=== PATIENT | male | born 1980 | race Caucasian/White ===

== ENCOUNTER 2024-02-15 08:12 | Outpatient (CLI) | payer OTHER | END 2024-02-15 08:13 | disposition home or self-care (01) | LOC: CSHWCC 08:12 | PROVIDERS: ATTEND Nurse Practitioner Family | DX: E11.621 Type 2 diabetes mellitus with foot ulcer (principal); L97.512 Non-pressure chronic ulcer of other part of right foot with fat layer exposed | CPT/HCPCS: 11042; 99213; G0463 ==

== ENCOUNTER 2024-02-18 10:44 | Outpatient (CLI) | payer OTHER | END 2024-02-18 10:45 | disposition home or self-care (01) | LOC: CSHWCC 10:44 | PROVIDERS: ATTEND Nurse Practitioner Family | DX: E11.621 Type 2 diabetes mellitus with foot ulcer (principal); L97.512 Non-pressure chronic ulcer of other part of right foot with fat layer exposed | CPT/HCPCS: 11042 ==

== ENCOUNTER 2024-03-03 14:32 | Outpatient (CLI) | payer OTHER | END 2024-03-03 14:33 | disposition home or self-care (01) | LOC: CSHWCC 14:32 | PROVIDERS: ATTEND Nurse Practitioner Family | DX: E11.621 Type 2 diabetes mellitus with foot ulcer (principal); L97.512 Non-pressure chronic ulcer of other part of right foot with fat layer exposed | CPT/HCPCS: 11042 ==

== ENCOUNTER 2024-03-10 08:39 | Outpatient (CLI) | payer OTHER | END 2024-03-10 08:40 | disposition home or self-care (01) | LOC: CSHWCC 08:39 | PROVIDERS: ATTEND Nurse Practitioner Family | DX: E11.621 Type 2 diabetes mellitus with foot ulcer (principal); L97.512 Non-pressure chronic ulcer of other part of right foot with fat layer exposed | CPT/HCPCS: 99212; G0463 ==

== ENCOUNTER 2024-03-13 14:50 | Outpatient (CLI) | payer OTHER | END 2024-03-13 14:51 | disposition home or self-care (01) | LOC: CSHWCC 14:50 | PROVIDERS: ATTEND Nurse Practitioner Family | DX: E11.621 Type 2 diabetes mellitus with foot ulcer (principal); L97.512 Non-pressure chronic ulcer of other part of right foot with fat layer exposed | CPT/HCPCS: 97597 ==

== ENCOUNTER 2024-03-20 15:47 | Outpatient (CLI) | payer OTHER | END 2024-03-20 15:48 | disposition home or self-care (01) | LOC: CSHWCC 15:47 | PROVIDERS: ATTEND Preventive Medicine Undersea and Hyperbaric Medicine | DX: E11.621 Type 2 diabetes mellitus with foot ulcer (principal); L97.512 Non-pressure chronic ulcer of other part of right foot with fat layer exposed | CPT/HCPCS: 29445 ==

== ENCOUNTER 2025-07-12 23:23 | Emergency (ER) | payer OTHER | END 2025-07-13 05:40 | disposition home or self-care (01) | LOC: CSHERS 23:23 | DX: R19.7 Diarrhea, unspecified (principal); R10.32 Left lower quadrant pain; E11.9 Type 2 diabetes mellitus without complications; I10 Essential (primary) hypertension; E66.9 Obesity, unspecified | CPT/HCPCS: 74177 ==